=== PATIENT | female | born 1935 | race Caucasian/White ===

== ENCOUNTER → 2019-10-22 | Outpatient (CLI) | payer MEDICARE, BC ==
--- NOTE | 2019-10-22 14:24 | BD ---
EXAMINATION TYPE: Axial Bone Density DATE OF EXAM: 10/22/2019 COMPARISON: 2013 DEXA bone scan CLINICAL HISTORY: Disorder of bone. Height: 59 inches Weight: 155 pounds FRAX RISK QUESTIONS: Alcohol (3 or more units per day): NO Family History (Parent hip fracture): no Glucocorticoids (More than 3mos): no (Ex: prednisone, prednisolone, methylprednisolone, dexamethasone, and hydrocortisone). History of Fracture in Adulthood: YES Secondary Osteoporosis: 1. Type 1 Diabetes: no 2. Hyperthyroidism: no 3. Menopause before 45: NO 4. Malnutrition: NO 5. Chronic liver disease: NO Rheumatoid Arthritis: no Current Tobacco Use: no RISK FACTORS HISTORY OF: Family History of Osteoporosis: not to knowledge of patient Active: yes Diet low in dairy products/other sources of calcium: yes Postmenopausal woman: YES Take estrogen and/or progesterone medications: not now How long: hormonal contraceptives Lost more than 2 inches in height since high school: no, but states height was previously about [address] [facility]; height stated as 60 inches in last study Frequent falls: NO Poor Health: no Hyperparathyroidism: no Adrenal Insufficiency: no MEDICATIONS: Prednisone or other steroids: no Thyroid Medications: no Osteoporosis Medications: no Additional Medications: Vitamin D3, blood pressure med ; arthritis Additional History: reason for visit: disorder of the bone EXAM MEASUREMENTS: Bone mineral densitometry was performed using the [employer] System. Bone mineral density as measured about the Lumbar spine is: ----- L1-L4(G/cm2): 1.082 T Score Values are as follows: ----- L2: -0.8 ----- L3: -0.5 ----- L4: -0.6 ----- L1-L4: -0.8 Bone mineral density has: Increased 5.9% since study of: 06/25/2013 Bone mineral density about the R hip (g/cm2): 0.676 Bone mineral density about the L hip (g/cm2): 0.759 T Score values are as follows: -----R Neck: -2.6 -----L Neck: -2.0 -----R Total: -1.8 -----L Total: -0.9 Bone mineral density has: Decreased -3.9% since study of: 06/25/2013 IMPRESSION: Osteoporosis (T Score less than -2.5) now present femoral neck level right hip. Bone density decrease are diminished and both hips from prior. There is now increased fracture risk and therapy is usually indicated based on age. Re-Screen 1-2 years. NOTE: T-SCORE=SD OF THE YOUNG ADULT MEAN.
== END ==
LOC: RADBDWWP 13:19
PROVIDERS: ATTEND Internal Medicine
DX: M81.8 Other osteoporosis without current pathological fracture (principal)
CPT/HCPCS: 77080

== ENCOUNTER → 2022-06-09 | Outpatient (CLI) | payer MEDICARE, BC ==
--- NOTE | 2022-06-09 19:24 | BD ---
EXAMINATION TYPE: Axial Bone Density DATE OF EXAM: 06/09/2022 CLINICAL HISTORY: 86 years year old Female. ICD-10 CODE: osteoporosis M81.0 Height: 59 Weight: 160.8 FRAX RISK QUESTIONS: Alcohol (3 or more units per day): NO Family History (Parent hip fracture): NO Glucocorticoids (More than 3mos): NO History of Fracture in Adulthood: NO Secondary Osteoporosis: 1. Type 1 Diabetes: NO 2. Hyperthyroidism: NO 3. Menopause before 45: NO 4. Malnutrition: NO 5. Chronic liver disease: NO Rheumatoid Arthritis: NO Current Tobacco Use: NO RISK FACTORS HISTORY OF: Hip Fracture (Right/Left): NO Spine Fracture: NO History of Wrist Fracture: NO Surgery to Spine/Hip(right/left)/Wrist (right/left): NO Family History of Osteoporosis: NO Active: YES Diet low in dairy products/other sources of calcium: YES Postmenopausal woman: YES Take estrogen and/or progesterone medications: NO Lost more than 2 inches in height since high school: YES Frequent falls: NO Poor Health: NO Hyperparathyroidism: NO Adrenal Insufficiency: NO MEDICATIONS: Prednisone or other steroids: NO Thyroid Medications: NO Osteoporosis Medications:NO Additional Medications: VIT D, BP MEDS EXAM MEASUREMENTS: Bone mineral densitometry was performed using the [employer] System. Bone mineral density as measured about the Lumbar spine is: ----- L1-L4(G/cm2): 1.023 T Score Values are as follows: ----- L1: -2.2 ----- L2: -0.4 ----- L3: -0.7 ----- L4: -1.7 ----- L1-L4: -1.3 Bone mineral density has: INCREASED 1.7 % since study of: 06/25/2013 Bone mineral density about the R hip (g/cm2): 0.718 Bone mineral density about the L hip (g/cm2): 0.737 T Score values are as follows: -----R Neck: -2.3 -----L Neck: -2.2 -----R Total: -1.1 -----L Total: -1.1 Bone mineral density has: DECREASED 0.5 % since study of: 06/25/2013 FRAX%s: The graph provided illustrates a 16.8% chance for a major osteoporotic fx and a 5.6% chance f or the hips probability for fx in 10 years time. IMPRESSION: Osteopenia (T Score between -2.5 and -1). There is slightly increased risk of fracture and the patient may be considered for treatment. Re-Screen 2-5 years. NOTE: T-SCORE=SD OF THE YOUNG ADULT MEAN.
== END | disposition home or self-care (01) ==
LOC: RADBDWWP 09:49
PROVIDERS: ATTEND Internal Medicine
DX: M85.89 Other specified disorders of bone density and structure, multiple sites (principal); Z78.0 Asymptomatic menopausal state
CPT/HCPCS: 77080

== ENCOUNTER 2023-04-10 17:31 | Emergency (ER) | payer MEDICARE, BC ==
[2023-04-10 17:37] VITALS: BP 166/100; PULSE 88; RESP 20; TEMP 98
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
== END 2023-04-10 20:17 | disposition home or self-care (01) ==
LOC: EC 17:31 → SUPCPDRO 17:31 → EC 20:17
DX: S00.03XA Contusion of scalp, initial encounter (principal); I10 Essential (primary) hypertension; Z79.899 Other long term (current) drug therapy; V43.52XA Car driver injured in collision with other type car in traffic accident, initial encounter
CPT/HCPCS: 70450; 72125; 99283

== ENCOUNTER → 2024-06-26 | Outpatient (CLI) | payer MEDICARE, BC ==
--- NOTE | 2024-06-28 19:10 | BD ---
EXAMINATION TYPE: Axial Bone Density DATE OF EXAM: 06/26/2024 CLINICAL HISTORY: 88 years old Female. ICD-10 CODE: M85.88 OTHER SPECIFIED DISO M85.80 OSTEOPOROSIS Height: 58.7 in Weight: 163 lbs FRAX RISK QUESTIONS: History of Fracture in Adulthood: lt wrist age 57; rt elbow fx age 67 HISTORY OF: History of Wrist Fracture: lt wrist age 57 EXAM MEASUREMENTS: Bone mineral densitometry was performed using the [employer] System. Bone mineral density as measured about the Lumbar spine is: ----- L1-L4(G/cm2): 1.035 T Score Values are as follows: ----- L1: -2.1 ----- L2: -1.0 ----- L3: -0.3 ----- L4: -1.6 ----- L1-L4: -1.2 Z Score Values are as follows: ----- L1: -0.5 ----- L2: 0.7 ----- L3: 1.3 ----- L4: 0.1 ----- L1-L4: 0.4 Bone mineral density has: Increased 1.2% since study of: 06/09/2022 Bone mineral density about the R hip (g/cm2): 0.778 Bone mineral density about the L hip (g/cm2): 0.866 T Score values are as follows: -----R Neck: -2.8 -----L Neck: -2.1 -----R Total: -1.8 -----L Total: -1.1 Z Score values are as follows: -----R Neck: -0.6 -----L Neck: 0.1 -----R Total: 0.3 -----L Total: 1.0 Bone mineral density has: Decreased -5.1% since study of: 06/09/2022 FRAX%s: The graph provided illustrates a 26.8% chance for a major osteoporotic fx and a 9.6% chance f or the hips probability for fx in 10 years time. IMPRESSION: Osteoporosis (T Score less than -2.5). There is increased fracture risk and therapy is usually indicated based on age. Re-Screen 1-2 years. NOTE: T-SCORE=SD OF THE YOUNG ADULT MEAN. [facility], , 06/28/2024 7:08 PM
== END | disposition home or self-care (01) ==
LOC: RADBDWWP 14:14
PROVIDERS: ATTEND Family Medicine
DX: M85.88 Other specified disorders of bone density and structure, other site
CPT/HCPCS: 77080